=== PATIENT | female | born 1935 | race Caucasian/White ===

== ENCOUNTER 2018-05-19 12:42 | Emergency (ER) | payer MEDICARE, BC ==
[~2018-05-19] VITALS: Ht 152.4 cm; Wt 70.0 kg
[~2018-05-19 12:42] MED LIST: APIDRA1 ML SC; ASA LOW STR81 MG OR; ASPIRIN ADULT L81 M2 PO; ATENOLOL25 MG PO; BENICAR HCT1 TA2 OR; BENICAR HCT1 TAB PO; CALCITONIN; CALCIUM + D PO; CALCIUM600 M2 OR; CARDIZEM CD240 MG PO; CARTIA XT240 MG/24 OR; DARVOCET-N 100100 MG OR; FIBER THERAP0.52 GM PO; FIBER625 MG OR; FISH OIL CON1000 MG OR; FISH OIL1200 M1 PO; FLEXERIL PO; GABAPENTIN300 MG PO; GLUCOVANCE5 MG/500 M OR; HUMULIN N1 ML SC; HUMULIN R1 M1 SC; ISOSORB MONO20 MG OR; KLOR-CON M2020 MEQ OR; LANTUS100 MG/ML SC; METFORMIN500 MG PO; MIACALCIN200 MG/ACT; MULTIVITAMI1 OR; OMEGA 3340 MG PO; PERCOCET 5/325M1 TAB PO; PLAVIX75 MG OR; POTASSIUM CHLORIDE PO; PRILOSEC20 MG OR; PRILOSEC20 MG PO; STOOL SOFTEN1 TAB OR; TOPROL XL25 MG OR; ULTRAM50 M1 PO; VITAMIN D32000 UNIT PO; ZETIA10 MG PO; [UNRECOGNIZED DRUG - OTHER]
[2018-05-19] MEDS ORDERED: LEVEMIR FL100 UNIT/M SC (12:55)
[2018-05-19] MEDS ORDERED: FERRAPLUS 90 PO (13:00)
[2018-05-19] MEDS ORDERED: BLOOD PRESSURE PO (13:01)
[2018-05-19] MEDS ORDERED: PLAVIX75 MG PO (13:21)
[2018-05-19] MEDS ORDERED: AMLODIPINE5 MG PO (13:21)
[2018-05-19] MEDS ORDERED: MOTRIN400 MG PO (15:12)
[2018-05-19] MEDS ORDERED: VOLTAREN1%GEL TOP (15:12)
[2018-05-19 15:24] VITALS: BP 147/62
== END 2018-05-19 15:24 | disposition home or self-care (01) ==
LOC: ED 12:42
DX: S39.012A Strain of muscle, fascia and tendon of lower back, initial encounter (principal); M54.5 Low back pain; V00.831A Fall from motorized mobility scooter, initial encounter; Y93.89 Activity, other specified; Y92.008 Other place in unspecified non-institutional (private) residence as the place of occurrence of the external cause; M79.604 Pain in right leg

== ENCOUNTER 2019-02-11 10:16 | Emergency (ER) | payer MEDICARE, BC ==
[~2019-02-11] VITALS: Ht 152.4 cm; Wt 70.0 kg
[~2019-02-11 10:16] MED LIST changes: +AMLODIPINE5 MG PO; +BLOOD PRESSURE PO; +FERRAPLUS 90 PO; +LEVEMIR FL100 UNIT/M SC; +MOTRIN400 MG PO; +PLAVIX75 MG PO; +VOLTAREN1%GEL TOP
[2019-02-11] MEDS ORDERED: MEDDOSEPAK PO (12:19)
[2019-02-11] MEDS ORDERED: TRAMADOL HYDROC50 MG PO (12:19)
[2019-02-11] MEDS ORDERED: FLEXERIL5 M1 PO (12:19)
[2019-02-11 13:25] VITALS: BP 127/56
== END 2019-02-11 13:25 | disposition home or self-care (01) ==
LOC: ED 10:16
DX: M54.5 Low back pain (principal); S39.011A Strain of muscle, fascia and tendon of abdomen, initial encounter; M79.652 Pain in left thigh

== ENCOUNTER 2019-04-07 07:55 | Emergency (ER) | payer MEDICARE, BC ==
[~2019-04-07] VITALS: Ht 152.4 cm; Wt 70.0 kg
[~2019-04-07 07:55] MED LIST changes: +FLEXERIL5 M1 PO; +GABAPENTIN100 MG PO; +MEDDOSEPAK PO; +TRAMADOL HYDROC50 MG PO
[2019-04-07 08:35] LABS: HEMATOCRIT 32.3 % (37.0-47.0); IMMATURE GRANULOCYTES 1.2 % (0.0-5.0); MEAN CELL VOLUME 109.5 fL CALC (80.0-100.0); MEAN CORPUSCULAR HGB 37.3 pG CALC (26.0-32.0); MEAN CORPUSCULAR HGB CONC 34.1 g/L CALC (32.0-36.0); NEUT# 22.39 thou/uL (2.00-7.15); RED BLOOD COUNT 2.95 mill/uL (4.20-5.60); RED CELL DISTRI WIDTH 17.1 % (11.5-15.5)
[2019-04-07 08:43] LABS: ALKALINE PHOSPHATASE 61 u/l (38-126); ANION GAP 17 (6-22 (CALC)); BILIRUBIN, TOTAL 1.5 mg/dL (0.0-1.4); BUN 23 mg/dL (8-23); BUN/CREATININE RATIO 34 (12-20 (CALC)); CARBON DIOXIDE 30 mmol/l (22-30); CHLORIDE 96 mmol/l (95-108); CREATININE 0.7 mg/dL (0.5-1.0); GFR > 60 ML/MIN (>=60 (CALC)); GFR FOR AFR.AMER. > 60 ML/MIN (>=60 (CALC)); LIPASE 28 u/l (23-300); POTASSIUM 4.3 mmol/l (3.5-5.1); SODIUM 139 mmol/l (137-146)
[2019-04-07] MEDS ORDERED: ALLEGRA180 MG PO (08:43)
[2019-04-07 08:44] LABS: ALBUMIN 4.5 g/dL (3.2-5.0); SGOT/AST 64 u/l (9-36); TOTAL PROTEIN 7.6 g/dL (6.3-8.2)
[2019-04-07] MEDS ORDERED: CYANOCOBAL1000 MCG/M IM (09:00)
[2019-04-07 09:01] LABS: INTERNATIONAL NORMALIZED RATIO 1.1 RATIO (0.7-1.3); PROTHROMBIN TIME 11.2 SECONDS (9.0-12.5)
[2019-04-07] MEDS ORDERED: OMEPRAZOLE10 MG PO (09:08)
[2019-04-07] MEDS ORDERED: HYDROCHLOROT25 MG PO (09:08)
[2019-04-07 10:04] LABS: URINE BILIRUBIN - DIPSTICK NEGATIVE (NEGATIVE); URINE BLOOD DIPSTICK NEGATIVE (NEGATIVE); URINE COLOR YELLOW; URINE GLUCOSE - DIPSTICK >=1000 mg/dL (NEGATIVE); URINE KETONE NEGATIVE (NEGATIVE); URINE LEUK ESTERASE NEGATIVE (NEGATIVE); URINE NITRITE - DIPSTICK NEGATIVE (Negative); URINE PROTEIN - DIPSTICK NEGATIVE (NEG-TRACE); URINE UROBILINOGEN - DIPSTICK 0.2 E.U./dL (0.2)
[2019-04-07] MEDS ORDERED: STERAPRED DS10 MG PO (12:31)
[2019-04-07 13:00] VITALS: BP 124/51
== END 2019-04-07 13:00 | disposition short-term general hospital (02) ==
LOC: ED 07:55
PROVIDERS: Family Medicine
DX: S72.001A Fracture of unspecified part of neck of right femur, initial encounter for closed fracture (principal); M19.90 Unspecified osteoarthritis, unspecified site; E11.9 Type 2 diabetes mellitus without complications; I10 Essential (primary) hypertension; W18.11XA Fall from or off toilet without subsequent striking against object, initial encounter; Y92.002 Bathroom of unspecified non-institutional (private) residence as the place of occurrence of the external cause

== ENCOUNTER 2019-05-27 00:10 | Observation (INO) | payer MEDICARE, BC ==
[~2019-05-27] VITALS: Ht 152.4 cm; Wt 89.5 kg
[~2019-05-27 00:10] MED LIST changes: -ATENOLOL25 MG PO; -CALCIUM + D PO; +CYANOCOBAL1000 MCG/M IM; -FISH OIL1200 M1 PO; -GABAPENTIN100 MG PO; +HYDROCHLOROT25 MG PO; -MULTIVITAMI1 OR; -PLAVIX75 MG PO; +STERAPRED DS10 MG PO; -ZETIA10 MG PO
[2019-05-27 00:35] LABS: HEMATOCRIT 28.5 % (37.0-47.0); HEMOGLOBIN 9.3 g/dl (12.0-16.0); IMMATURE GRANULOCYTES 0.2 % (0.0-5.0); MEAN CORPUSCULAR HGB 33.5 pG CALC (26.0-32.0); MEAN CORPUSCULAR HGB CONC 32.6 g/L CALC (32.0-36.0); NEUT# 7.82 thou/uL (2.00-7.15); RED BLOOD COUNT 2.78 mill/uL (4.20-5.60); RED CELL DISTRI WIDTH 24.7 % (11.5-15.5)
[2019-05-27 00:36] LABS: MEAN CELL VOLUME 102.5 fL CALC (80.0-100.0); URINE BILIRUBIN - DIPSTICK NEGATIVE (NEGATIVE); URINE BLOOD DIPSTICK LARGE (NEGATIVE); URINE COLOR YELLOW; URINE GLUCOSE - DIPSTICK NEGATIVE (NEGATIVE); URINE KETONE NEGATIVE (NEGATIVE); URINE LEUK ESTERASE TRACE (NEGATIVE); URINE NITRITE - DIPSTICK POSITIVE (Negative); URINE PROTEIN - DIPSTICK >=300 mg/dL (NEG-TRACE); URINE SPECIFIC GRAVITY 1.025; URINE UROBILINOGEN - DIPSTICK 0.2 E.U./dL (0.2)
[2019-05-27 00:37] LABS: URINE BACTERIA MANY hpf; URINE EPITHELIAL CELLS MANY EPI/hpf (0-FEW); URINE RBC 25-50 RBC/hpf (0-5)
[2019-05-27 00:48] LABS: ALKALINE PHOSPHATASE 64 u/l (38-126); BUN 38 mg/dL (8-23); CARBON DIOXIDE 25 mmol/l (22-30); CHLORIDE 99 mmol/l (95-108); POTASSIUM 5.1 mmol/l (3.5-5.1); SGOT/AST 21 u/l (9-36)
[2019-05-27 00:51] LABS: ALBUMIN 2.9 g/dL (3.2-5.0); ANION GAP 12 (6-22 (CALC)); BILIRUBIN, TOTAL 0.5 mg/dL (0.0-1.4); BUN/CREATININE RATIO 21 (12-20 (CALC)); CREATININE 1.8 mg/dL (0.5-1.0); GFR 27 ML/MIN (>=60 (CALC)); GFR FOR AFR.AMER. 33 ML/MIN (>=60 (CALC)); SODIUM 131 mmol/l (137-146); TOTAL PROTEIN 5.9 g/dL (6.3-8.2)
[2019-05-27 01:00] LABS: MYOGLOBIN 65 ng/mL (0 - 62)
[2019-05-27 03:15] VITALS: BP 119/63
[2019-05-27 05:50] LABS: HEMATOCRIT 32.7 % (37.0-47.0); HEMOGLOBIN 10.7 g/dl (12.0-16.0); IMMATURE GRANULOCYTES 0.2 % (0.0-5.0); MEAN CELL VOLUME 102.2 fL CALC (80.0-100.0); MEAN CORPUSCULAR HGB 33.4 pG CALC (26.0-32.0); MEAN CORPUSCULAR HGB CONC 32.7 g/L CALC (32.0-36.0); NEUT# 6.74 thou/uL (2.00-7.15); RED BLOOD COUNT 3.2 mill/uL (4.20-5.60); RED CELL DISTRI WIDTH 24.6 % (11.5-15.5)
[2019-05-27 05:56] LABS: ALBUMIN 2.7 g/dL (3.2-5.0); BILIRUBIN, TOTAL 0.6 mg/dL (0.0-1.4); CREATININE 1.7 mg/dL (0.5-1.0); TOTAL PROTEIN 5.6 g/dL (6.3-8.2)
[2019-05-27 06:25] LABS: POTASSIUM 5.2 mmol/l (3.5-5.1)
[2019-05-27 08:24] VITALS: BP 144/51
[2019-05-27 11:10] VITALS: BP 122/63
[2019-05-27] MEDS ORDERED: ATENOLOL25 MG PO (13:22)
[2019-05-27] MEDS ORDERED: ZETIA10 MG PO (13:24)
[2019-05-27] MEDS ORDERED: CALCIUM + D PO (13:24)
[2019-05-27] MEDS ORDERED: MULTIVITAMI1 OR (13:25)
[2019-05-27] MEDS ORDERED: PLAVIX75 MG PO (13:27)
[2019-05-27] MEDS ORDERED: OMEPRAZOLE10 MG PO (13:27)
[2019-05-27] MEDS ORDERED: HYZAAR1 TA1 PO (13:27)
[2019-05-27] MEDS ORDERED: FISH OIL1200 M1 PO (13:28)
[2019-05-27] MEDS ORDERED: GABAPENTIN100 MG PO (13:28)
[2019-05-27] MEDS ORDERED: ALLEGRA180 MG PO (13:29)
[2019-05-27] MEDS ORDERED: NORVASC5 M1 PO (13:29)
[2019-05-27] MEDS ORDERED: PRIMIDONE50 MG PO (13:31)
[2019-05-27] MEDS ORDERED: KLOR-CON M2020 MEQ PO (13:32)
[2019-05-27] MEDS ORDERED: ECOTRIN LOW STR81 MG PO (13:33)
[2019-05-27] MEDS ORDERED: LEVEMIR100 UNIT/M SC (13:34)
[2019-05-27 15:03] VITALS: BP 128/58
[2019-05-27 19:05] VITALS: BP 135/64
[2019-05-27 23:54] VITALS: BP 115/49
[2019-05-28 05:53] LABS: CREATININE 1.7 mg/dL (0.5-1.0); POTASSIUM 5.1 mmol/l (3.5-5.1)
[2019-05-28 07:55] VITALS: BP 139/75
[2019-05-28 11:03] VITALS: BP 126/54
[2019-05-28 15:05] VITALS: BP 126/68
[2019-05-28 19:04] VITALS: BP 126/57
[2019-05-28 23:40] VITALS: BP 123/57
[2019-05-29 05:01] VITALS: BP 135/69
[2019-05-29 05:18] LABS: HEMATOCRIT 29.4 % (37.0-47.0); HEMOGLOBIN 9.7 g/dl (12.0-16.0); MEAN CELL VOLUME 103.2 fL CALC (80.0-100.0); RED BLOOD COUNT 2.85 mill/uL (4.20-5.60); RED CELL DISTRI WIDTH 23.8 % (11.5-15.5)
[2019-05-29 05:39] LABS: CREATININE 1.7 mg/dL (0.5-1.0); POTASSIUM 5.1 mmol/l (3.5-5.1)
[2019-05-29 08:14] VITALS: BP 156/62
[2019-05-29] MEDS ORDERED: DOXYCYCL HYC100 MG PO (09:41)
[2019-05-29] MEDS ORDERED: ALLEGRA180 MG PO (09:41)
[2019-05-29] MEDS ORDERED: LOSARTAN POTASS50 MG PO (09:41)
[2019-05-29] MEDS ORDERED: TRAMADOL HCL50 MG PO (09:41)
[2019-05-29 11:00] VITALS: BP 122/53
== END 2019-05-29 14:20 | disposition home health service (06) ==
LOC: ED 00:10 → ED-I 02:10 → ED 02:35 → MS2 02:36
PROVIDERS: Emergency Medicine; Internal Medicine; ADMIT Internal Medicine; ATTEND Internal Medicine
PROC: 0T2BX0Z Change Drainage Device in Bladder, External Approach (ICD-10-PCS; principal; 2019-05-27)
DX: E11.649 Type 2 diabetes mellitus with hypoglycemia without coma (principal); G93.41 Metabolic encephalopathy; J18.9 Pneumonia, unspecified organism; N39.0 Urinary tract infection, site not specified; N17.9 Acute kidney failure, unspecified; I12.9 Hypertensive chronic kidney disease with stage 1 through stage 4 chronic kidney disease, or unspecified chronic kidney disease; E11.22 Type 2 diabetes mellitus with diabetic chronic kidney disease; N18.9 Chronic kidney disease, unspecified; E87.1 Hypo-osmolality and hyponatremia; J32.9 Chronic sinusitis, unspecified; I25.10 Atherosclerotic heart disease of native coronary artery without angina pectoris; M19.90 Unspecified osteoarthritis, unspecified site; G82.20 Paraplegia, unspecified; Z79.4 Long term (current) use of insulin; B95.62 Methicillin resistant Staphylococcus aureus infection as the cause of diseases classified elsewhere; Z95.1 Presence of aortocoronary bypass graft; Z87.891 Personal history of nicotine dependence; Z99.3 Dependence on wheelchair; Z96.0 Presence of urogenital implants

== ENCOUNTER 2019-06-01 13:07 | Inpatient (IN) | payer MEDICARE, BC ==
[~2019-06-01] VITALS: Ht 152.4 cm; Wt 89.5 kg
[~2019-06-01 13:07] MED LIST changes: +ALLEGRA180 MG PO; +ATENOLOL25 MG PO; +CALCIUM + D PO; +DOXYCYCL HYC100 MG PO; +ECOTRIN LOW STR81 MG PO; +FISH OIL1200 M1 PO; +GABAPENTIN100 MG PO; +HYZAAR1 TA1 PO; +KLOR-CON M2020 MEQ PO; +LEVEMIR100 UNIT/M SC; +LOSARTAN POTASS50 MG PO; +MULTIVITAMI1 OR; +NORVASC5 M1 PO; +OMEPRAZOLE10 MG PO; +PLAVIX75 MG PO; +PRIMIDONE50 MG PO; +TRAMADOL HCL50 MG PO; +ZETIA10 MG PO
[2019-06-01 14:02] LABS: URINE BLOOD DIPSTICK LARGE (NEGATIVE); URINE COLOR YELLOW; URINE GLUCOSE - DIPSTICK 100 mg/dL (NEGATIVE); URINE KETONE NEGATIVE (NEGATIVE); URINE LEUK ESTERASE NEGATIVE (NEGATIVE); URINE NITRITE - DIPSTICK NEGATIVE (Negative); URINE PH 5.5 (4.5-8.0); URINE PROTEIN - DIPSTICK >=300 mg/dL (NEG-TRACE); URINE SPECIFIC GRAVITY 1.025; URINE UROBILINOGEN - DIPSTICK 0.2 E.U./dL (0.2)
[2019-06-01 14:07] LABS: HEMATOCRIT 28.4 % (37.0-47.0); HEMOGLOBIN 9.3 g/dl (12.0-16.0); IMMATURE GRANULOCYTES 0.5 % (0.0-5.0); MEAN CELL VOLUME 102.2 fL CALC (80.0-100.0); MEAN CORPUSCULAR HGB 33.5 pG CALC (26.0-32.0); MEAN CORPUSCULAR HGB CONC 32.7 g/L CALC (32.0-36.0); NEUT# 8.7 thou/uL (2.00-7.15); RED BLOOD COUNT 2.78 mill/uL (4.20-5.60)
[2019-06-01 14:07] LABS: URINE BILIRUBIN - DIPSTICK NEGATIVE (NEGATIVE)
[2019-06-01 14:09] LABS: URINE FINE GRAN CAST MANY lpf; URINE HYALINE CAST MANY lpf (NONE-RARE); URINE MUCUS MODERATE hpf (NONE-FEW); URINE SQUAMOUS EPITHELIAL CELL MODERATE EPI/hpf (0-FEW)
[2019-06-01 14:20] LABS: ALBUMIN 2.5 g/dL (3.2-5.0); ALKALINE PHOSPHATASE 53 u/l (38-126); ANION GAP 13 (6-22 (CALC)); BILIRUBIN, TOTAL 0.6 mg/dL (0.0-1.4); BUN 53 mg/dL (8-23); CARBON DIOXIDE 19 mmol/l (22-30); CHLORIDE 105 mmol/l (95-108); SGOT/AST 14 u/l (9-36); SODIUM 131 mmol/l (137-146); TOTAL PROTEIN 5.2 g/dL (6.3-8.2)
[2019-06-01 14:21] LABS: BUN/CREATININE RATIO 17 (12-20 (CALC)); CREATININE 3.1 mg/dL (0.5-1.0); GFR 14 ML/MIN (>=60 (CALC)); GFR FOR AFR.AMER. 17 ML/MIN (>=60 (CALC)); POTASSIUM 5.5 mmol/l (3.5-5.1)
[2019-06-01] MEDS ORDERED: HYZAAR1 TA1 PO (15:07)
[2019-06-01] MEDS ORDERED: ADVANCED FIBER COMPL PO (15:49)
[2019-06-01] MEDS ORDERED: MACULAR HEALTH1 CAP PO (15:49)
[2019-06-01 17:10] VITALS: BP 135/50
[2019-06-01 19:32] VITALS: BP 142/68
[2019-06-01 23:50] VITALS: BP 132/66
[2019-06-02 04:15] VITALS: BP 142/65
[2019-06-02 05:31] LABS: HEMOGLOBIN 8.2 g/dl (12.0-16.0); MEAN CELL VOLUME 101.2 fL CALC (80.0-100.0); MEAN CORPUSCULAR HGB 33.2 pG CALC (26.0-32.0); MEAN CORPUSCULAR HGB CONC 32.8 g/L CALC (32.0-36.0); RED BLOOD COUNT 2.47 mill/uL (4.20-5.60); RED CELL DISTRI WIDTH 23.5 % (11.5-15.5)
[2019-06-02 05:44] LABS: CREATININE 3.3 mg/dL (0.5-1.0)
[2019-06-02 06:02] LABS: MAGNESIUM 1.5 mg/dL (1.6-2.3)
[2019-06-02 08:49] VITALS: BP 117/60
[2019-06-02 11:05] VITALS: BP 121/36
[2019-06-02 13:15] LABS: CREATININE 3.4 mg/dL (0.5-1.0)
[2019-06-02 13:16] LABS: POTASSIUM 5.3 mmol/l (3.5-5.1)
== END 2019-06-02 16:02 | disposition short-term general hospital (02) | DRG 682 ==
LOC: ED 13:07 → ED-I 13:17 → ED 13:17 → ED-I 14:53 → ED 15:03 → MS2 15:04
PROVIDERS: Family Medicine; ADMIT Internal Medicine; ATTEND Internal Medicine
PROC: 05HM33Z Insertion of Infusion Device into Right Internal Jugular Vein, Percutaneous Approach (ICD-10-PCS; principal; 2019-06-01)
DX: N17.0 Acute kidney failure with tubular necrosis (principal); J18.9 Pneumonia, unspecified organism; G82.20 Paraplegia, unspecified; M31.0 Hypersensitivity angiitis; E11.21 Type 2 diabetes mellitus with diabetic nephropathy; R60.1 Generalized edema; I10 Essential (primary) hypertension; K21.9 Gastro-esophageal reflux disease without esophagitis; M19.90 Unspecified osteoarthritis, unspecified site; R23.8 Other skin changes; I25.10 Atherosclerotic heart disease of native coronary artery without angina pectoris; E87.5 Hyperkalemia; Z96.0 Presence of urogenital implants; Z87.891 Personal history of nicotine dependence; Z95.1 Presence of aortocoronary bypass graft; Z79.4 Long term (current) use of insulin
CPT/HCPCS: J0692; J3370; J3475